=== PATIENT | female | born 1995 | race Caucasian/White ===

== ENCOUNTER 2023-04-01 02:57 | Inpatient (IN) | payer BC ==
[2023-04-01] MEDS ORDERED: Nalbuphine 10 MG/0.5 ML Syringe IVPUSH PRN (07:11)
[2023-04-01] MEDS ORDERED: Acetaminophen 325 MG Tab PO PRN (07:11)
[2023-04-01] MEDS ORDERED: Lidocaine 1% 50 ML MDV INJECT PRN (07:11)
[2023-04-01] MEDS ORDERED: Sodium Chloride 0.9% 10 ML Syringe FLUSH PRN (07:11)
[2023-04-01] MEDS ORDERED: Ondansetron 4 MG/2 ML SDV IVPUSH PRN (07:11)
[2023-04-01] MEDS ORDERED: Oxytocin/Lactated Ringers 10 UNIT/1,000 ML BAG IV SCH ×2 (07:15)
[2023-04-01] MEDS ORDERED: diphenhydrAMINE 50 MG/ML SDV IVPUSH PRN (07:26)
[2023-04-01] MEDS ORDERED: fentaNYL 100 MCG/2 ML SDV EPIDUR PRN (07:26)
[2023-04-01] MEDS ORDERED: ePHEDrine 50 MG/ML SDV IVPUSH PRN (07:26)
[2023-04-01 07:42] LABS: HEMATOCRIT 38.2 % (34.1-44.9); HEMOGLOBIN 12.9 gm/dl (11.2-15.7); MEAN CORPUSCULAR HEMOGLOBIN 30.3 pg (25.6-32.2); MEAN CORPUSCULAR HGB CONC 33.8 g/dl (32.2-35.5); MEAN CORPUSCULAR VOLUME 89.7 fl (79.4-94.8); MEAN PLATELET VOLUME 11.1 fl (9.4-12.3); PLATELET COUNT,PLT 223 K/mm3 (182-369); RED BLOOD CELL COUNT 4.26 M/mm3 (3.98-5.22); WHITE BLOOD CELL COUNT,WBC 9.65 K/mm3 (3.98-10.04)
[2023-04-01] MEDS: Misoprostol 25 MCG (1/4 of 100 MCG) Tab VAG PRN ×2 (08:02→12:02)
[2023-04-01] MEDS ORDERED: Sodium Chloride 0.9% 10 ML Syringe FLUSH SCH (09:00)
[2023-04-01] MEDS: Lactated Ringers 1,000 ML IV SCH ×4 (09:04→20:40)
[2023-04-01] MEDS ORDERED: Penicillin G Potassium 5 MILLUNITS in Sodium Chloride 0.9% 100 ML IV ONE ×2 (16:30→20:00)
[2023-04-01] MEDS: Bupivacaine/fentaNYL/NS 100 ML Bag EPIDUR PRN (18:54)
[2023-04-01] MEDS: Penicillin G Potassium 2.5 MILLUNITS in Sodium Chloride 0.9% 100 ML IV SCH (20:40)
[2023-04-02] MEDS ORDERED: Bupivacaine 0.25% 10 ML SDV ONE
[2023-04-02] MEDS ORDERED: Penicillin G Potassium 2.5 MILLUNITS in Sodium Chloride 0.9% 100 ML IV SCH (00:05)
[2023-04-02] MEDS: Penicillin G Potassium 2.5 MILLUNITS in Sodium Chloride 0.9% 100 ML IV SCH (00:40)
[2023-04-02] MEDS: Bupivacaine/fentaNYL/NS 100 ML Bag EPIDUR PRN (01:54)
[2023-04-02] MEDS ORDERED: Acetaminophen 325 MG Tab PO PRN (03:51)
[2023-04-02] MEDS ORDERED: Docusate Sodium 100 MG Cap PO PRN (03:51)
[2023-04-02] MEDS ORDERED: Benzocaine/Menthol 20%-0.5% Spray 78 GM Cannister TOP PRN (03:51)
[2023-04-02] MEDS ORDERED: Witch Hazel Medicated Pads 40/Jar TOP PRN (03:51)
[2023-04-02] MEDS: Ibuprofen 600 MG Tab PO PRN ×2 (09:52→18:23)
[2023-04-03] MEDS: Ibuprofen 600 MG Tab PO PRN (06:33)
== END 2023-04-03 13:00 | disposition home or self-care (01) | DRG 560 ==
LOC: JD.OB 02:57 → OBSVTOIN 04-02 02:57 → JD.OB 04-02 02:58
PROVIDERS: ADMIT Obstetrics & Gynecology; ATTEND Obstetrics & Gynecology
PROC: 10E0XZZ Delivery of Products of Conception, External Approach (ICD-10-PCS; principal; 2023-04-02)
PROC: 10907ZC Drainage of Amniotic Fluid, Therapeutic from Products of Conception, Via Natural or Artificial Opening (ICD-10-PCS; 2023-04-02)
PROC: 0U7C7ZZ Dilation of Cervix, Via Natural or Artificial Opening (ICD-10-PCS; 2023-04-02)
PROC: 3E0P7VZ Introduction of Hormone into Female Reproductive, Via Natural or Artificial Opening (ICD-10-PCS; 2023-04-02)
PROC: 3E033VJ Introduction of Other Hormone into Peripheral Vein, Percutaneous Approach (ICD-10-PCS; 2023-04-02)
PROC: 0KQM0ZZ Repair Perineum Muscle, Open Approach (ICD-10-PCS; 2023-04-02)
PROC: 3E0R3BZ Introduction of Anesthetic Agent into Spinal Canal, Percutaneous Approach (ICD-10-PCS; 2023-04-02)
PROC: 00HU33Z Insertion of Infusion Device into Spinal Canal, Percutaneous Approach (ICD-10-PCS; 2023-04-02)
DX: O70.1 Second degree perineal laceration during delivery (principal); O99.824 Streptococcus B carrier state complicating childbirth; Z3A.39 39 weeks gestation of pregnancy; Z88.1 Allergy status to other antibiotic agents; Z79.2 Long term (current) use of antibiotics; Z98.890 Other specified postprocedural states; Z37.0 Single live birth
CPT/HCPCS: 36415; 51701; 51702; 59025; 59409; 85027; 86592; 86850; 86900; 86901; A9270-GY; C1726; J2405; J2540; J2590; J3010; J3490; J7120

== ENCOUNTER 2024-06-26 22:00 | Emergency (ER) | payer BC ==
[2024-06-26 23:06] LABS: APPEARANCE,URINE CLEAR (Clear); BILIRUBIN,URINE NEGATIVE (Negative); COLOR,URINE LIGHT YELLOW (Yellow); GLUCOSE,URINE NEGATIVE (Negative); KETONES,URINE NEGATIVE (Negative); LEUKOCYTE ESTERASE,URINE NEGATIVE (Negative); NITRITE,URINE NEGATIVE (Negative); OCCULT BLOOD,URINE NEGATIVE (Negative); PH,URINE 6.5 (5.0-8.0); PROTEIN,URINE NEGATIVE (Negative); UROBILINOGEN,URINE 0.2 (0.2-1.0)
[2024-06-26 23:14] LABS: BASOPHILS PERCENT AUTO 0.5 % (0.0-1.0); EOSINOPHILS ABSOLUTE AUTO 0.1 K/mm3 (0.0-0.4); EOSINOPHILS PERCENT AUTO 0.8 % (0.0-6.0); HEMATOCRIT 37.7 % (37.0-47.0); HEMOGLOBIN 12.5 gm/dl (12.0-16.0); IMMATURE GRAN ABSOLUTE AUTO 0.02 K/mm3 (0.00-0.05); IMMATURE GRAN PERCENT AUTO 0.3 % (0.0-0.4); MEAN CORPUSCULAR HEMOGLOBIN 28.9 pg (28.0-32.0); MEAN CORPUSCULAR HGB CONC 33.2 g/dl (32.0-36.0); MEAN CORPUSCULAR VOLUME 87.3 fl (83.0-99.0); MEAN PLATELET VOLUME 10.7 fl (9.4-12.3); MONOCYTES ABSOLUTE AUTO 0.9 K/mm3 (0.0-0.8); MONOCYTES PERCENT AUTO 13.9 % (0.0-8.0); NEUTROPHILS ABSOLUTE AUTO 4.6 K/mm3 (1.8-7.7); NEUTROPHILS PERCENT AUTO 69.5 % (41.0-71.0); PLATELET COUNT,PLT 211 K/mm3 (150-400); RED BLOOD CELL COUNT 4.32 M/mm3 (4.10-5.30); WHITE BLOOD CELL COUNT,WBC 6.54 K/mm3 (3.9-11.3)
[2024-06-26] MEDS ORDERED: Sodium Chloride 0.9% 10 ML Syringe FLUSH PRN (23:18)
[2024-06-26 23:27] LABS: A/G RATIO 0.9 (1-2); ALANINE AMINOTRANSFERASE,ALT 20 U/L (14-59); ALBUMIN 3.8 g/dl (3.4-5.0); ALKALINE PHOSPHATASE 54 U/L (46-116); ANION GAP 13.7 (5-15); ASPARTATE AMNIOTRANSFERASE,AST 20 U/L (15-37); BILIRUBIN TOTAL 0.2 mg/dL (0.2-1.0); BLOOD UREA NITROGEN,BUN 12 mg/dL (7-18); CALCIUM 9.2 mg/dL (8.5-10.1); CARBON DIOXIDE,CO2 28 mEq/L (21-32); CHLORIDE,CL 101 mEq/L (98-107); CREATININE 0.8 mg/dL (0.55-1.02); ESTIMATED GFR 104 mL/min (>60); GLUCOSE RANDOM 103 mg/dL (70-99); LIPASE 39 U/L (16-77); POTASSIUM,K 3.7 mEq/L (3.5-5.1); PROTEIN TOTAL,TP 8.2 g/dl (6.4-8.2); SODIUM,NA 139 mEq/L (136-145)
[2024-06-27] MEDS: Iopamidol 612 MG/ML 100 ML Bottle IVPUSH ONE (00:45)
== END 2024-06-27 02:17 | disposition home or self-care (01) ==
LOC: JD.ED 22:00
DX: K59.00 Constipation, unspecified (principal); Z86.16 Personal history of COVID-19; Z79.899 Other long term (current) drug therapy; Z88.1 Allergy status to other antibiotic agents; Z91.018 Allergy to other foods
CPT/HCPCS: 36415; 74177; 80053; 81003; 83690; 84702; 85025; 99284; Q9967